=== PATIENT | female | born 1985 | race Caucasian/White ===

== ENCOUNTER 2018-11-16 09:37 | Emergency (ER) | payer SELFPAY ==
[~2018-11-16] VITALS: Ht 172.7 cm; Wt 136.8 kg
[2018-11-16 09:40] VITALS: BP 162/81; PULSE 101; RESP 18; Ht 172.7 cm; Wt 136.8 kg
[2018-11-16] MEDS ORDERED: AMOX1TAB10 PO (10:06)
[2018-11-16] MEDS ORDERED: NPH10OT RIGHT EAR (10:06)
--- NOTE | 2018-11-16 10:15 | ERD ---
ER Documentation Chief Complaint Chief Complaint pt is bib self with c/o right ear pain starting tuesday HPI 33-year-old female presenting with right ear pain times 5 days. She took Motrin last night but no other medications. She has had no bleeding or purulence from the ear. Has had a runny nose over the last week which is resolved and a mild cough. Denies any dental pain. Denies headaches or vomiting. Denies fever. Denies medical problems. NKDA. Surgical history denies. Social history denies ROS All systems reviewed and are negative except as per history of present illness. Medications Home Meds Active Scripts Neomycin/Polymyxin/Hydrocort* (Cortisporin* Otic) 10 Ml Susp, 4 DROP RIGHT EAR QID for 7 Days, EA Prov:ROBBIN DOMINGUEZ PA-C 11/16/18 Amoxicillin/Potassium Clav (Amox-Clav 875-125 mg Tablet) 875-125 mg Tab, 1 TAB PO BID for 7 Days, #14 TAB Prov:ROBBIN DOMINGUEZ PA-C 11/16/18 Allergies Allergies: Coded Allergies: No Known Allergy (Unverified , 11/16/18) PMhx/Soc Medical and Surgical Hx: pt denies Medical Hx, pt denies Surgical Hx Hx Alcohol Use: No Hx Substance Use: No Hx Tobacco Use: No Smoking Status: Never smoker FmHx Family History: No diabetes, No coronary disease, No other Physical Exam Vitals Vital Signs Date Temp Pulse Resp B/P (MAP) Pulse Ox O2 O2 Flow FiO2 Time Delivery Rate 11/16/18 98.1 101 18 162/81 98 09:40 (108) Physical Exam GENERAL: The patient is well-appearing, well-nourished, in no acute distress HEENT: Atraumatic. Conjunctivae are pink. Pupils equal, round, and reactive to light. There is no scleral icterus. No mastoid tenderness. Mild tragal tenderness. Cerumen within ear canal CHEST: Clear to auscultation bilaterally. There are no rales, wheezes or rhonchi. HEART: Regular rate and rhythm. No murmurs, clicks, rubs or gallops. No S3 or S4. Procedures/MDM MDM: 33-year-old female presenting with ear pain. Patient does have cerumen and mild tragal tenderness so I will treat for both otitis media and otitis externa. Patient is recommended to use medications for 1 week and then return to the ER to have ear lavage performed. I have low suspicion for mastoiditis. I have low suspicion for meningitis. Patient is discharged stricter precautions and told to follow-up with primary care within 1-2 days for close evaluation. All questions answered at discharge Departure Diagnosis: Primary Impression: Ear problem Condition: Stable Patient Instructions: Understanding Middle Ear Infections Referrals: [facility] YOU HAVE RECEIVED A MEDICAL SCREENING EXAM AND THE RESULTS INDICATE THAT YOU DO NOT HAVE A CONDITION THAT REQUIRES URGENT TREATMENT IN THE EMERGENCY DEPARTMENT. FURTHER EVALUATION AND TREATMENT OF YOUR CONDITION CAN WAIT UNTIL YOU ARE SEEN IN YOUR DOCTORS OFFICE WITHIN THE NEXT 1-2 DAYS. IT IS YOUR RESPONSIBILITY TO MAKE AN APPOINTMENT FOR FOLOW-UP CARE. IF YOU HAVE A PRIMARY DOCTOR --you should call your primary doctor and schedule an appointment IF YOU DO NOT HAVE A PRIMARY DOCTOR YOU CAN CALL OUR PHYSICIAN REFERRAL HOTLINE AT IF YOU CAN NOT AFFORD TO SEE A PHYSICIAN YOU CAN CHOSE FROM THE FOLLOWING [facility] [address] [facility] [address] [facility] [address] [facility] [address] [facility] [address] [facility] [facility]. [address] Additional Instructions: FOLLOW UP WITH YOUR PRIMARY CARE PHYSICIAN TOMORROW.Return to this facility if you are not improving as expected. ROBBIN DOMINGUEZ PA-C Nov 16, 2018 10:15
== END 2018-11-16 10:12 | disposition home or self-care (01) ==
LOC: FTE 09:37
DX: H92.01 Otalgia, right ear (principal)
CPT/HCPCS: 99283